=== PATIENT | female | born 1955 | race Caucasian/White ===

== ENCOUNTER 2020-11-01 06:44 | Outpatient (RCR) | payer MEDICARE, OTHER, SELFPAY ==
[2020-11-01] MEDS: COVID-19 VACC, MRNA(PFIZER)/PF 30 MCG/0.3 ML SYRINGE IM (16:32)
[2020-11-22] MEDS: COVID-19 VACC, MRNA(PFIZER)/PF 30 MCG/0.3 ML SYRINGE IM (15:37)
== END 2021-02-05 23:59 ==
LOC: IMMUN 06:44
PROVIDERS: Referring Provider Family Medicine; Visit Provider Family Medicine
DX: Z23 Encounter for immunization (principal)
CPT/HCPCS: 0001A; 0002A; 91300